=== PATIENT | female | born 1990 | race African-American/Black ===

== ENCOUNTER 2016-09-15 21:13 | Emergency (ER) | payer BC, OTHER ==
[~2016-09-15] VITALS: Ht 154.9 cm; Wt 51.3 kg
[2016-09-15 21:40] VITALS: BP 126/71
[2016-09-15] MEDS ORDERED: ACETAMINOPHEN 500 MG TABLET PO ONE (22:15)
--- NOTE | 2016-09-15 22:48 | PHYS DOC ---
Past Medical History Past Medical History: No Pertinent History Past Surgical History: Alcohol Use: Occasionally Drug Use: None Adult General Chief Complaint Chief Complaint: FEVER HPI HPI Patient is a 26 year old female who presents with a productive cough, nasal congestion, body aches, fever, that began this morning at 6 AM. Patient denies any chance she is , denies any nausea vomiting or diarrhea. Review of Systems Review of Systems Constitutional: Body aches and fever Eyes: Denies change in visual acuity, redness, or eye pain [] HENT: Nasal congestion Respiratory: cough Cardiovascular: No additional information not addressed in HPI [] GI: Denies abdominal pain, nausea, vomiting, bloody stools or diarrhea [] : Denies dysuria or hematuria [] Musculoskeletal: Denies back pain or joint pain [] Integument: Denies rash or skin lesions [] Neurologic: Denies headache, focal weakness or sensory changes [] Endocrine: Denies polyuria or polydipsia [] Current Medications Current Medications Current Medications Medications (Trade) Dose Ordered Sig/Leonardo Start Time Stop Time Status Last Admin Dose Admin Acetaminophen (Tylenol) 1,000 mg 1X ONCE 09/15/16 22:15 09/15/16 22:16 DC 09/15/16 22:11 1,000 MG Hydrocodone Bitartrate/ Ibuprofen (Vicoprofen 7.5-200) 1 tab 1X ONCE 09/15/16 23:30 09/15/16 23:31 UNV Allergies Allergies Allergies Coded Allergies Type Severity Reaction Last Updated Verified No Known Drug Allergies 05/31/15 No Physical Exam Physical Exam Constitutional: Well developed, well nourished, no acute distress, non-toxic appearance. [] HENT: Normocephalic, atraumatic, bilateral external ears normal, oropharynx moist, no oral exudates, nose normal. [] Eyes: PERRLA, EOMI, conjunctiva normal, no discharge. [] Neck: Normal range of motion, no tenderness, supple, no stridor. [] Cardiovascular:Heart rate regular rhythm, no murmur [] Lungs & Thorax: Bilateral breath sounds clear to auscultation [] Abdomen: Bowel sounds normal, soft, no tenderness, no masses, no pulsatile masses. [] Skin: Warm, dry, no erythema, no rash. [] Back: No tenderness, no CVA tenderness. [] Extremities: No tenderness, no cyanosis, no clubbing, ROM intact, no edema. [] Neurologic: Alert and oriented X 3, normal motor function, normal sensory function, no focal deficits noted. [] Psychologic: Affect normal, judgement normal, mood normal. [] Current Patient Data Vital Signs Vital Signs Date Time Temp Pulse Resp B/P Pulse Ox O2 Delivery O2 Flow Rate FiO2 09/15/16 21:40 103.2 108 22 99 Room Air 103.2 Lab Values Laboratory Tests Test 09/15/16 21:44 Influenza Type A Antigen Negative (NEGATIVE) Influenza Type B Antigen Negative (NEGATIVE) EKG EKG [] Radiology/Procedures Radiology/Procedures [] Course & Med Decision Making Course & Med Decision Making Pertinent Labs and Imaging studies reviewed. (See chart for details) Patient is in the ED with a productive cough, nasal congestion, body aches, fever. Temperature in the ED is 103.2. She was given 1 g of Tylenol. Negative influenza A or B. chest x-ray interpreted by Dr. Davalos is negative for any acute findings. Patient appears well. Symptoms are viral. Discharged with Tylenol 3. Discharged with ibuprofen. Instructed push fluids and maintain good hand hygiene. Follow-up with her own PCP in the next 1- 7 days. Provided return precautions and discharged in stable condition. Dragon Disclaimer Dragon Disclaimer This electronic medical record was generated, in whole or in part, using a voice recognition dictation system. Departure Departure Impression: Primary Impression: Fever Additional Impressions: Cough Upper respiratory infection Disposition: 01 HOME, SELF-CARE Condition: STABLE Referrals: NO PCP (PCP) Follow up with your doctor in one to seven days Patient Instructions: Cough, Adult, Fever, Adult Additional Instructions: You were seen for fever, cough and upper respiratory infection. Your symptoms are viral. Please push fluids. Maintain good hand hygiene at home. Take the prescribed medicines as ordered. Do not mix Tylenol #3 with regular Tylenol because #Tylenol 3 has Tylenol. Follow-up with your doctor in the next 3-7 days , come back to the emergency room if symptoms worsen. Scripts Ibuprofen 800 Mg [id number] Mg PO PRN Q6HRS PRN INFLAMMATION #30 TAB Prov:MUTUNGA,MANJINDER TRIAGE REGISTER NURSE 09/15/16 Acetaminophen With Codeine (Tylenol With Codeine #3 Tablet)1 Each Tablet1 Tab PO PRN Q4HRS PRN PAIN #30 TAB Prov:SUSIEMANJINDER TRIAGE REGISTER NURSE 09/15/16 Problem Qualifiers Primary Impression: Fever Fever type: unspecified Qualified Code: R50.9 - Fever, unspecified Additional Impressions: Upper respiratory infection URI type: unspecified URI Qualified Code: J06.9 - Acute upper respiratory infection, unspecified ANTHONYAGUEDAMANJINDER TRIAGE REGISTER NURSE Sep 15, 2016 22:48
[2016-09-15 22:52] LABS: OBC FLU VALID
[2016-09-15] MEDS ORDERED: ACET-704 PO (23:35)
[2016-09-15] MEDS ORDERED: IBUP-1060 PO (23:35)
[2016-09-15] MEDS ORDERED: HYDROCODON/IBUPROFEN 7.5/200MG TABLET. PO ONE (23:45)
--- NOTE | 2016-09-16 07:36 | RAD ---
Indication cough. PA and lateral views of the chest were obtained. No prior imaging of the chest is available. The heart and pulmonary vessels appear normal. The lungs are clear. IMPRESSION: Normal chest.
== END 2016-09-16 | disposition home or self-care (01) ==
LOC: ER 21:13
DX: J06.9 Acute upper respiratory infection, unspecified (principal)
CPT/HCPCS: 71020; 87804; 99285-25

== ENCOUNTER 2018-03-12 16:19 | Emergency (ER) | payer SELFPAY ==
[2018-03-12 16:39] LABS: URINE HCG POC HCG POSITIVE (Negative)
[2018-03-12 16:41] LABS: BILIRUBIN,URINE NEGATIVE (NEG); CLARITY,URINE CLOUDY; COLOR,URINE YELLOW; GLUCOSE,URINE NEGATIVE (NEG); NITRITE,URINE NEGATIVE (NEG); PROTEIN,URINE 30 mg/dL (NEG-TRACE)
[2018-03-12 16:52] LABS: SQUAMOUS EPITHELIAL CELL,UR MOD /LPF
[2018-03-12 16:53] LABS: WBC,URINE >40 /HPF (0-4)
[2018-03-12 16:54] LABS: BACTERIA,URINE FEW /HPF (0-FEW)
== END 2018-03-12 17:29 | disposition home or self-care (01) ==
LOC: ER 17:29
DX: O23.41 Unspecified infection of urinary tract in pregnancy, first trimester (principal); Z98.890 Other specified postprocedural states; Z3A.01 Less than 8 weeks gestation of pregnancy
CPT/HCPCS: 81001; 81025; 87086; 99284

== ENCOUNTER 2019-04-07 09:49 | Emergency (ER) | payer OTHER ==
[~2019-04-07] VITALS: Ht 154.9 cm; Wt 65.8 kg
[~2019-04-07 09:49] MED LIST: ACET-704 PO; IBUP-1060 PO; NITR100C62 PO
--- NOTE | 2019-04-07 10:39 | PHYS DOC ---
Past Medical History Past Medical History: No Pertinent History Past Surgical History: Alcohol Use: Occasionally Drug Use: None Adult General Chief Complaint Chief Complaint: ABDOMINAL PAIN HPI HPI Patient is a 29 year old female that presents with urinary frequency and dysuria. Patient states she hadn't had a menstrual period since November when she had her last child. She is on control pill. Reports pain on urination is 7/10 in severity. Review of Systems Review of Systems Constitutional: Denies fever or chills [] Eyes: Denies change in visual acuity, redness, or eye pain [] HENT: Denies nasal congestion or sore throat [] Respiratory: Denies cough or shortness of breath [] Cardiovascular: No additional information not addressed in HPI [] GI: Denies abdominal pain, nausea, vomiting, bloody stools or diarrhea [] : Reports frequency, dysuria Musculoskeletal: Denies back pain or joint pain [] Integument: Denies rash or skin lesions [] Neurologic: Denies headache, focal weakness or sensory changes [] Complete systems were reviewed and found to be within normal limits, except as documented in this note. Allergies Allergies Allergies Coded Allergies Type Severity Reaction Last Updated Verified No Known Drug Allergies 05/31/15 No Physical Exam Physical Exam Constitutional: Well developed, well nourished, no acute distress, non-toxic appearance. [] HENT: Normocephalic, atraumatic, bilateral external ears normal, oropharynx moist, no oral exudates, nose normal. [] Eyes: PERRLA, EOMI, conjunctiva normal, no discharge. [] Neck: Normal range of motion, no tenderness, supple, no stridor. [] Cardiovascular:Heart rate regular rhythm, no murmur [] Lungs & Thorax: Bilateral breath sounds clear to auscultation [] Abdomen: Bowel sounds normal, soft, no tenderness, no masses, no pulsatile masses. [] Skin: Warm, dry, no erythema, no rash. [] Back: No tenderness, no CVA tenderness. [] Extremities: No tenderness, no cyanosis, no clubbing, ROM intact, no edema. [] Neurologic: Alert and oriented X 3, normal motor function, normal sensory function, no focal deficits noted. [] Psychologic: Affect normal, judgement normal, mood normal. [] Current Patient Data Vital Signs Vital Signs Date Time Temp Pulse Resp B/P (MAP) Pulse Ox O2 Delivery O2 Flow Rate FiO2 04/07/19 10:15 98.1 89 14 138/80 (99) 98 Room Air 98.1 Lab Values Laboratory Tests Test 04/07/19 10:12 04/07/19 10:16 Urine Collection Type Void Urine Color Vickie Urine Clarity Turbid Urine pH 5.5 Urine Specific [place] >=1.030 Urine Protein 100 mg/dL (NEG-TRACE) Urine Glucose (UA) Negative mg/dL (NEG) Urine Ketones (Stick) Trace mg/dL (NEG) Urine Blood Moderate (NEG) Urine Nitrite Negative (NEG) Urine Bilirubin Negative (NEG) Urine Urobilinogen Dipstick 0.2 mg/dL (0.2 mg/dL) Urine Leukocyte Esterase Large (NEG) Urine RBC 3-5 /HPF (0-2) Urine WBC 11-20 /HPF (0-4) Urine Amorphous Sediment Present /HPF Urine Bacteria Many /HPF (0-FEW) POC Urine HCG, Qualitative Hcg negative (Negative) EKG EKG [] Radiology/Procedures Radiology/Procedures [] Course & Med Decision Making Course & Med Decision Making Pertinent Labs and Imaging studies reviewed. (See chart for details) Will get ua, and urine . Urine is negative. UA shows UTI. Will treat with keflex. Dragon Disclaimer Dragon Disclaimer This electronic medical record was generated, in whole or in part, using a voice recognition dictation system. Departure Departure Impression: Primary Impression: Urinary tract infection Disposition: 01 HOME, SELF-CARE Condition: STABLE Referrals: NO PCP (PCP) Patient Instructions: Urinary Tract Infection Additional Instructions: Thank you for visiting [facility]. We appreciate you trusting us with your care. If any additional problems come up don't hesitate to return to visit us. Please follow up with your primary care provider so they can plan additional care if needed and know about the problem that you had. If symptoms worsen come back to the Emergency Department. Any concerning symptoms that start such as chest pain, shortness of air, weakness or numbness on one side of the body, running high fevers or any other concerning symptoms return to the ER. Please fill your medications at any pharmacy and follow the prescription instructions. You have been prescribed an antibiotic today to help fight your infection. Pleas e take all of the antibiotic as directed. If after 48 hours the infection is not improving, please return for more care. If the infection worsens, return to ER for additional care. Scripts Cephalexin (KEFLEX) 500 Mg Capsule 1 CAP PO BID for 7 Days, #14 CAP Prov: JANN ROBB APRN 04/07/19 Problem Qualifiers Primary Impression: Urinary tract infection Urinary tract infection type: acute cystitis Hematuria presence: with hematuria Qualified Codes: N30.01 - Acute cystitis with hematuria JANN ROBB APRN Apr 07, 2019 10:39
[2019-04-07 10:59] LABS: BILIRUBIN,URINE NEGATIVE (NEG); CLARITY,URINE TURBID; COLOR,URINE AMBER; NITRITE,URINE NEGATIVE (NEG); PH,URINE 5.5; PROTEIN,URINE 100 mg/dL (NEG-TRACE); UROBILINOGEN,URINE 0.2 mg/dL (0.2 mg/dL)
[2019-04-07 11:06] LABS: BACTERIA,URINE MANY /HPF (0-FEW)
[2019-04-07 11:07] LABS: AMORPHOUS SEDIMENT,UR PRESENT /HPF
[2019-04-07] MEDS ORDERED: CEPH-264 PO (11:23)
[2019-04-07 11:30] VITALS: BP 134/82
== END 2019-04-07 11:42 | disposition home or self-care (01) ==
LOC: ER 09:49
DX: N30.01 Acute cystitis with hematuria (principal); Z98.890 Other specified postprocedural states
CPT/HCPCS: 81001; 81025; 87086; 99284

== ENCOUNTER 2021-03-23 01:12 | Emergency (ER) | payer OTHER ==
[~2021-03-23] VITALS: Ht 154.9 cm; Wt 54.5 kg
[~2021-03-23 01:12] MED LIST changes: +CEPH-264 PO
[2021-03-23 01:30] VITALS: BP 139/82
[2021-03-23 01:56] LABS: BILIRUBIN,URINE NEGATIVE (NEG); CLARITY,URINE TURBID; COLOR,URINE AMBER; NITRITE,URINE POSITIVE (NEG); PROTEIN,URINE >=300 mg/dL (NEG-TRACE)
[2021-03-23 02:01] LABS: BACTERIA,URINE MANY /HPF (0-FEW); RBC,URINE TNTC /HPF (0-2); WBC,URINE TNTC /HPF (0-4)
[2021-03-23] MEDS ORDERED: NITR100C62 PO (02:05)
[2021-03-23] MEDS ORDERED: PHEN-318 PO (02:05)
--- NOTE | 2021-03-23 02:05 | PHYS DOC ---
Past Medical History Past Medical History: No Pertinent History Past Surgical History: Smoking Status: Current Every Day Smoker Alcohol Use: Occasionally Drug Use: None General Adult EDM: Chief Complaint: PAIN ON URINATION HPI: HPI: Patient is a 31 year old female presents with 1 day history of urinary frequency and dysuria. Review of Systems: Review of Systems: Constitutional: Denies fever or chills. [] Eyes: Denies change in visual acuity. [] HENT: Denies nasal congestion or sore throat. [] Respiratory: Denies cough or shortness of breath. [] Cardiovascular: Denies chest pain or edema. [] GI: Denies abdominal pain, nausea, vomiting, bloody stools or diarrhea. [] : Positive dysuria positive urinary frequency Musculoskeletal: Denies back pain or joint pain. [] Integument: Denies rash. [] Neurologic: Denies headache, focal weakness or sensory changes. [] Endocrine: Denies polyuria or polydipsia. [] Lymphatic: Denies swollen glands. [] Psychiatric: Denies depression or anxiety. [] Heart Score: C/O Chest Pain: N/A Risk Factors: Risk Factors: DM, Current or recent (<one month) smoker, HTN, HLP, family history of CAD, obesity. Risk Scores: Score 0 - 3: 2.5% MACE over next 6 weeks - Discharge Home Score 4 - 6: 20.3% MACE over next 6 weeks - Admit for Clinical Observation Score 7 - 10: 72.7% MACE over next 6 weeks - Early Invasive Strategies Allergies: Allergies: Allergies Coded Allergies Type Severity Reaction Last Updated Verified No Known Drug Allergies 05/31/15 No Physical Exam: PE: Constitutional: Well developed, well nourished, no acute distress, non-toxic appearance. [] HENT: Normocephalic, atraumatic, bilateral external ears normal, oropharynx moist, no oral exudates, nose normal. [] Eyes: PERRLA, EOMI, conjunctiva normal, no discharge. [] Neck: Normal range of motion, no tenderness, supple, no stridor. [] Cardiovascular:Heart rate regular rhythm, no murmur [] Lungs & Thorax: Bilateral breath sounds clear to auscultation [] Abdomen: Bowel sounds normal, soft, no tenderness, no masses, no pulsatile masses. [] Skin: Warm, dry, no erythema, no rash. [] Back: No tenderness, no CVA tenderness. [] Extremities: No tenderness, no cyanosis, no clubbing, ROM intact, no edema. [] Neurologic: Alert and oriented X 3, normal motor function, normal sensory function, no focal deficits noted. [] Psychologic: Affect normal, judgement normal, mood normal. [] Current Patient Data: Labs: Laboratory Tests Test 03/23/21 01:30 Urine Collection Type Void Urine Color Vickie Urine Clarity Turbid Urine pH 6.0 (<5.0-8.0) Urine Specific [place] 1.025 (1.000-1.030) Urine Protein >=300 mg/dL (NEG-TRACE) Urine Glucose (UA) Negative mg/dL (NEG) Urine Ketones (Stick) Negative mg/dL (NEG) Urine Blood Large (NEG) Urine Nitrite Positive (NEG) Urine Bilirubin Negative (NEG) Urine Urobilinogen Dipstick 1.0 mg/dL (0.2 mg/dL) Urine Leukocyte Esterase Large (NEG) Urine RBC Tntc /HPF (0-2) Urine WBC Tntc /HPF (0-4) Urine Squamous Epithelial Cells Few /LPF Urine Bacteria Many /HPF (0-FEW) Urine Mucus Mod /LPF EKG: EKG: [] Radiology/Procedures: Radiology/Procedures: [] Course & Med Decision Making: Course & Med Decision Making Pertinent Labs and Imaging studies reviewed. (See chart for details) [] Dragon Disclaimer: Dragon Disclaimer: This electronic medical record was generated, in whole or in part, using a voice recognition dictation system. Departure Departure Impression: Primary Impression: Urinary tract infection Disposition: HOME / SELF CARE / HOMELESS Condition: STABLE Referrals: NO PCP (PCP) Patient Instructions: Urinary Tract Infection Scripts Phenazopyridine Hcl (PYRIDIUM) 200 Mg Tablet 1 TAB PO TID for urinary discomfort for 3 Days, #9 TAB 0 Refills Prov: SHANNAN SARGENT DO 03/23/21 Nitrofurantoin Monohyd/M-Cryst (MACROBID 100 MG CAPSULE) 100 Mg Capsule 1 CAP PO BID for 5 Days, #10 CAP 0 Refills Prov: SHANNAN SARGENT DO 03/23/21 SHANNAN SARGENT DO Mar 23, 2021 02:05
== END 2021-03-23 02:14 | disposition home or self-care (01) ==
LOC: ER 01:12
DX: N39.0 Urinary tract infection, site not specified (principal); F17.200 Nicotine dependence, unspecified, uncomplicated
CPT/HCPCS: 81001; 87077; 87086; 87186; 99283

== ENCOUNTER 2021-07-04 08:30 | Emergency (ER) | payer OTHER ==
[~2021-07-04] VITALS: Ht 154.9 cm; Wt 53.2 kg
[~2021-07-04 08:30] MED LIST changes: +PHEN-318 PO
[2021-07-04] MEDS ORDERED: cefTRIAXone IM 500 MG VIAL. IM ONE (09:00)
--- NOTE | 2021-07-04 09:28 | PHYS DOC ---
Past Medical History Past Medical History: No Pertinent History Past Surgical History: Smoking Status: Never Smoker Alcohol Use: Occasionally Drug Use: None Social History Narrative: Patient lives at home with her children, she reports that she feels safe General Adult EDM: Chief Complaint: SEXUALLY TRANSMITTED DISEASE HPI: HPI: Patient is a 31-year-old female presenting to the emergency department through triage reporting that she was informed she may have been exposed to chlamydia. Upon conversing patient informs that she has had associated back pain and abdominal pain x1 week. Her back pain is described as a soreness rated 3 out of 10, her abdominal pain is mild, nondescript and rated as 3 out of 10. Patient denies nausea, vomiting, or diarrhea. Patient reports that she has a "weird feeling "after peeing but denies burning during urination. She also denies feeling of incomplete voiding. She has a history of 3 total pregnancies, 1 elective , 2 live births. She reported that she is currently sexually active with one partner, intermittent condom usage. She does have a Nexplanon implant. She reports that she started her period a few days ago, a day prior to beginning her. She reported some mild thick white and grayish vaginal discharge. Patient is resting comfortably in bed, no reported fevers, malaise, rigors. Review of Systems: Review of Systems: Constitutional: Denies fever or chills Eyes: Denies redness or eye pain HENT: Denies nasal congestion or sore throat Respiratory: Denies cough or shortness of breath Cardiovascular: Denies chest pain or palpitations GI: Denies nausea, vomiting, or diarrhea; reports mild abdominal discomfort : Denies dysuria, incomplete voiding; reports odd sensation to following urination, vaginal discharge Musculoskeletal: Denies back pain or joint pain Integument: Denies rash or skin lesions Neurologic: Denies headache, focal weakness or sensory changes Complete systems were reviewed and found to be within normal limits, except as documented in this note. Heart Score: C/O Chest Pain: N/A Family History: Family History: Unremarkable family history Current Medications: Current Medications Medications (Trade) Dose Ordered Sig/Leonardo Start Time Stop Time Status Last Admin Dose Admin Ceftriaxone Sodium (Rocephin Im) 500 mg 1X ONCE 07/04/21 09:00 07/04/21 09:01 DC Allergies: Allergies: Allergies Coded Allergies Type Severity Reaction Last Updated Verified No Known Drug Allergies 07/04/21 No Physical Exam: PE: Constitutional: Well developed, well nourished, no acute distress, non-toxic appearance HENT: Normocephalic, atraumatic Eyes: conjunctiva normal, no discharge Neck: Normal range of motion, no tenderness, supple Lungs & Thorax: No respiratory distress, equal chest rise and fall, lungs clear to auscultation bilaterally, normal chest wall excursion bilaterally Abdomen: Soft, mild tenderness on palpation in the left lower quadrant, no CVA tenderness bilaterally Skin: Warm, dry, no erythema, no rash Back: No tenderness, no CVA tenderness : Patient consented to pelvic exampelvic exam performed in department was chaperoned by Anahi CURTIS RN. Speculum was lubricated and inserted, cervix was visualized, swabs were collected, there was no cervical motion tenderness. On bimanual exam patient's bilateral ovaries were palpated normal Extremities: No tenderness, ROM intact, no edema Neurologic: Alert and oriented X 3, normal motor function, normal sensory functi on, no focal deficits noted Psychologic: Affect normal, judgment normal Current Patient Data: Vital Signs: Vital Signs Date Time Temp Pulse Resp B/P (MAP) Pulse Ox O2 Delivery O2 Flow Rate FiO2 07/04/21 08:44 98.4 75 16 110/63 (79) 100 Room Air 98.4 EKG: EKG: [] Radiology/Procedures: Radiology/Procedures: [] Course & Med Decision Making: Course & Med Decision Making Patient presented to ED with report that she may have been exposed to chlamydia. Patient reports some associated mild abdominal and back pain and one episode of thick white/grayish vaginal discharge. Patient is afebrile without clinical evidence of systemic infection. Plan for urine analysis, urine , pelvic exam with swab, and administration of 1 dose Rocephin IM in the department as well as outpatient regime of doxycycline. Dragon Disclaimer: Doroteo Disclaimer: This electronic medical record was generated, in whole or in part, using a voice recognition dictation system. Departure Departure Impression: Primary Impression: Concern about STD in female without diagnosis Additional Impression: Bacterial vaginitis Disposition: HOME / SELF CARE / HOMELESS Condition: STABLE Referrals: NO PCP (PCP) Patient Instructions: Sexually Transmitted Disease, [id number], Vaginitis, [id number] Scripts Metronidazole (METRONIDAZOLE) 500 Mg Tablet 1 TAB PO BID for 7 Days, #14 TAB 0 Refills Prov: JANN BAPTISTE DO 07/04/21 Doxycycline Hyclate (DOXYCYCLINE HYCLATE) 100 Mg Tablet 1 TAB PO BID, #14 TAB Prov: JANN BAPTISTE DO 07/04/21 JANN BAPTISTE DO Jul 04, 2021 09:28
[2021-07-04 09:45] LABS: BILIRUBIN,URINE NEGATIVE (NEG); CLARITY,URINE CLEAR; COLOR,URINE AMBER; NITRITE,URINE NEGATIVE (NEG); PH,URINE 5.5 (<5.0-8.0); PROTEIN,URINE NEGATIVE (NEG-TRACE); UROBILINOGEN,URINE 0.2 mg/dL (0.2 mg/dL)
[2021-07-04 09:53] LABS: BACTERIA,URINE FEW /HPF (0-FEW)
[2021-07-04] MEDS ORDERED: METR-34 PO (10:51)
[2021-07-04] MEDS ORDERED: DOXY100T PO (10:51)
[2021-07-04 10:56] VITALS: BP 110/76
[2021-07-07 13:10] LABS: GC PROBE Negative (Negative)
== END 2021-07-04 10:58 | disposition home or self-care (01) ==
LOC: ER 09:29
DX: Z20.2 Contact with and (suspected) exposure to infections with a predominantly sexual mode of transmission (principal); N76.0 Acute vaginitis; B96.89 Other specified bacterial agents as the cause of diseases classified elsewhere; Z98.890 Other specified postprocedural states
CPT/HCPCS: 81001; 87491; 87591; 96372; 99284; J0696; Q0111; 81025

== ENCOUNTER 2021-12-14 10:20 | Emergency (ER) | payer OTHER ==
[~2021-12-14] VITALS: Ht 157.5 cm; Wt 54.0 kg
[~2021-12-14 10:20] MED LIST changes: +DOXY100T PO; +METR-34 PO
[2021-12-14 11:10] VITALS: BP 161/100
[2021-12-14] MEDS ORDERED: CETI10TA74 PO (11:32)
[2021-12-14] MEDS ORDERED: FLUT9.9S NS (11:32)
[2021-12-14] MEDS ORDERED: METH4TAB2 PO (11:32)
[2021-12-14] MEDS ORDERED: BENZ200C47 PO (11:33)
--- NOTE | 2021-12-14 11:33 | PHYS DOC ---
Past Medical History Past Medical History: No Pertinent History Past Surgical History: No Surgical History, Smoking Status: Never Smoker Alcohol Use: Occasionally Drug Use: None General Adult EDM: Chief Complaint: COUGH HPI: HPI: Patient is a 31 year old female who presents with nasal congestion and cough x1 week. She states she does have seasonal allergies. She states has been taking allergy medication or Tylenol cold and flu. She denies fevers or cold chills. She denies abdominal pain, nausea, vomiting, diarrhea, headache, dizziness, chest pain, shortness of breath, syncope, wheezing. Review of Systems: Review of Systems: Constitutional: Denies fever or chills. [] Eyes: Denies change in visual acuity. [] HENT: + nasal congestion or denies sore throat. +scratchy throat[] Respiratory: + cough or denies shortness of breath. [] Cardiovascular: Denies chest pain or edema. [] GI: Denies abdominal pain, nausea, vomiting, bloody stools or diarrhea. [] : Denies dysuria. [] Musculoskeletal: Denies back pain or joint pain. [] Integument: Denies rash. [] Neurologic: Denies headache, focal weakness or sensory changes. [] Endocrine: Denies polyuria or polydipsia. [] Lymphatic: Denies swollen glands. [] Psychiatric: Denies depression or anxiety. [] Heart Score: C/O Chest Pain: No Allergies: Allergies: Allergies Coded Allergies Type Severity Reaction Last Updated Verified No Known Drug Allergies 07/04/21 No Physical Exam: PE: Constitutional: Well developed, well nourished, no acute distress, non-toxic appearance. [] HENT: Normocephalic, atraumatic, bilateral external ears normal, oropharynx moist, no oral exudates, nose normal. nasal congestion[] Eyes: PERRLA, EOMI, conjunctiva normal, no discharge. [] Neck: Normal range of motion, no tenderness, supple, no stridor. [] Cardiovascular:Heart rate regular rhythm, no murmur [] Lungs & Thorax: Bilateral breath sounds clear to auscultation [] Abdomen: Bowel sounds normal, soft, no tenderness, no masses, no pulsatile m asses. [] Skin: Warm, dry, no erythema, no rash. [] Back: No tenderness, no CVA tenderness. [] Extremities: No tenderness, no cyanosis, no clubbing, ROM intact, no edema. [] Neurologic: Alert and oriented X 3, normal motor function, normal sensory function, no focal deficits noted. [] Psychologic: Affect normal, judgement normal, mood normal. [] Current Patient Data: Vital Signs: Vital Signs Date Time Temp Pulse Resp B/P (MAP) Pulse Ox O2 Delivery O2 Flow Rate FiO2 12/14/21 11:10 98.8 83 18 161/100 (120) 18 Room Air 98.8 EKG: EKG: [] Radiology/Procedures: Radiology/Procedures: [] Course & Med Decision Making: Course & Med Decision Making Pertinent Labs and Imaging studies reviewed. (See chart for details) See HPI. Alert and oriented x4. Ambulatory steady gait. Skin pink warm and dry. Skin pink warm and dry. Lungs are clear to all stational lobes. No rashes. Throat is pink without exudates or swelling. Nasal drainage and postnasal drip. Some tenderness in the frontal and maxillary sinuses with p alpation. Afebrile. Nonseptic appearing. Patient xray read by Dr Hawkins as no acute findings. [] Doroteo Disclaimer: Dragerma Disclaimer: This electronic medical record was generated, in whole or in part, using a voice recognition dictation system. Departure Departure Impression: Primary Impression: Nasal congestion Additional Impression: Cough Disposition: 01 HOME / SELF CARE / HOMELESS Condition: STABLE Referrals: NO PCP (PCP) Patient Instructions: Cough, Adult, Sinusitis Additional Instructions: Follow up with primary care provider if needed. Drink plenty of fluids. Take medication as prescribed and with food. If you begin running a fever or wheezing or having respiratory distress, return to the ER. Scripts Albuterol Sulfate (PROAIR HFA INHALER) 8.5 Gm Hfa.aer.ad 1 PUFF INH PRN Q6HRS PRN for SHORTNESS OF BREATH, #1 EACH 0 Refills Prov: LÓPEZ FELIX OFFICE ADMINISTRATION 12/14/21 Benzonatate (BENZONATATE) 200 Mg Capsule 1 CAP PO TID for cough for 10 Days, #30 CAP 0 Refills Prov: BAFUSPAVITHRAA M OFFICE ADMINISTRATION 12/14/21 Cetirizine Hcl (ZYRTEC) 10 Mg Tablet 1 TAB PO DAILY, #30 TAB 2 Refills Prov: BAFUSLÓPEZ M OFFICE ADMINISTRATION 12/14/21 Fluticasone Propionate (Flonase Allergy Relief) 9.9 Ml Anderson.susp 2 SPRAYS NS DAILY for 7 Days, #1 ML Prov: LÓPEZ FELIX APRN 12/14/21 Methylprednisolone (MEDROL) 4 Mg Tab.ds.pk 1 PKG PO UD, #1 PKG Prov: LÓPEZ FELIX APRN 12/14/21 LÓPEZ FELIX APRN December 14, 2021 11:33
[2021-12-14 11:44] LABS: INFLUENZA A PATIENT NEGATIVE (NEGATIVE); INFLUENZA B PATIENT NEGATIVE (NEGATIVE)
[2021-12-14] MEDS ORDERED: ALBU2.5V8 INH (11:46)
--- NOTE | 2021-12-14 12:09 | RAD ---
XR CHEST 1V CLINICAL INDICATIONS: Reason: COUGH AND CONGESTION / Spl. Instructions: / History: COMPARISON: September 15, 2016. Findings: No acute lung infiltrate or pleural effusion or pulmonary edema or lung mass or pneumothora x is seen. The heart size, pulmonary vasculature, mediastinum and both sisi are unremarkable. The os seous structures appear intact. IMPRESSION: No acute radiographic abnormality is seen. Electronically signed by: Lalo Sanchez MD (12/14/2021 12:06 PM) [id number]
== END 2021-12-14 11:55 | disposition home or self-care (01) ==
LOC: ER 10:20
DX: R09.81 Nasal congestion (principal); R05.9 Cough, unspecified; R09.89 Other specified symptoms and signs involving the circulatory and respiratory systems; Z20.822 Contact with and (suspected) exposure to COVID-19
CPT/HCPCS: 71045; 87428; 99284